=== PATIENT | female | born 2000 | race Caucasian/White ===

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

== ENCOUNTER 2024-01-24 02:16 | Emergency (ER) | payer BC ==
[~2024-01-24] VITALS: Ht 167.6 cm; Wt 95.5 kg
[~2024-01-24 02:16] MED LIST changes: +HUMIRA40 MG/0.8 SQ; +IBU800 M1 PO; +PNV-SELECT1 TAB PO; +PROTONIX 40MG T40 MG PO
[2024-01-24 02:26] VITALS: TEMP 98.4
[2024-01-24 03:03] LABS: COLLECTION METHOD CLEAN CATCH
[2024-01-24 03:06] LABS: BASO % 0.3 % (0.0-2.0); EOS # 0.1 K/mm3 (0.0-0.7); EOS % 0.6 % (0.0-4.0); GRAN # 7.1 K/mm3 (1.4-6.5); GRAN % 73.4 % (42.2-75.2); HEMATOCRIT 39.7 % (37.0-47.0); HEMOGLOBIN 13.7 g/dl (12.5-16.0); LYMPH # 2.1 K/mm3 (1.2-3.4); LYMPH % 21.5 % (20.0-51.0); MEAN CELL VOLUME 87 fl (80.0-100.0); MEAN CORPUSCULAR HEMOGLOBIN 30 pg (27-31); MEAN CORPUSCULAR HGB CONC 35 g/dl (33.0-37.0); MEAN PLATELET VOLUME 9.9 fl (7.4-10.4); MONO # 0.4 K/mm3 (0.1-0.6); PLATELET COUNT 223 K/mm3 (130-400); RED BLOOD COUNT 4.54 M/mm3 (4.10-5.30); REDCELL DISTRIBUTION WIDTH-CV 12.2 % (11.5-14.5)
[2024-01-24 03:12] LABS: URINE APPEARANCE TURBID (CLEAR/HAZY); URINE BLOOD 3+ (NEGATIVE); URINE COLOR RED (YELLOW); URINE GLUCOSE NEGATIVE (NEGATIVE); URINE KETONE NEGATIVE (NEGATIVE); URINE PROTEIN(semi-quant) 3+ (NEGATIVE); URINE UROBILINOGEN 0.2 E.U/dL (0.2-1.0)
[2024-01-24 03:18] LABS: ALBUMIN 3.6 g/dL (3.5-5.0); BILIRUBIN,TOTAL 0.4 mg/dL (0.2-1.2); CALCIUM 9.4 mg/dL (8.4-10.2); POTASSIUM 3.9 mEq/L (3.5-4.5); TOTAL PROTEIN 7.2 g/dl (6.2-8.1)
[2024-01-24 03:44] LABS: CREATININE, serum 0.65 mg/dL (0.57-1.11)
[2024-01-24] MEDS ORDERED: Rho(D) Imm Globulin 1,500 UNITS (300 MCG)/2 ML SYRINGE IV\\IM SCH (04:32)
[2024-01-24 04:59] VITALS: BP 124/77; PULSE 80
== END 2024-01-24 05:00 | disposition home or self-care (01) ==
LOC: COL.ER 02:16
PROVIDERS: Emergency Medicine
DX: O20.0 Threatened abortion (principal); Z3A.14 14 weeks gestation of pregnancy
CPT/HCPCS: J2791